=== PATIENT | female | born 1975 | race Caucasian/White ===

== ENCOUNTER 2021-09-29 15:14 | Outpatient (CLI) | payer OTHER, SELFPAY ==
[2021-09-29 19:07] LABS: D Dimer Quantitative* 0.74 ug/ml (0.00-0.50)
== END 2021-09-29 15:15 | disposition home or self-care (01) ==
LOC: LKVREF 15:17
PROVIDERS: PCP Emergency Medicine; Visit Provider Internal Medicine Hematology & Oncology
DX: I82.409 Acute embolism and thrombosis of unspecified deep veins of unspecified lower extremity (principal); I10 Essential (primary) hypertension
CPT/HCPCS: 85379

== ENCOUNTER 2022-03-11 15:41 | Outpatient (CLI) | payer OTHER, SELFPAY ==
[2022-03-11 22:27] LABS: Chloride* 102 mmol/L (96-114); Potassium* 3.8 mmol/L (3.6-5.1); Sodium* 139 mmol/L (135-149)
[2022-03-11 22:30] LABS: Blood Urea Nitrogen* 12 mg/dL (5-24); Calcium* 9.5 mg/dL (8.4-10.6); Carbon Dioxide* 29 mmol/L (20-32); Creatinine* 0.7 mg/dL (0.5-1.5); Estimated Glomerular Filt Rate 109 ml/min; Glucose* 74 mg/dL (60-115)
== END 2022-03-11 15:42 | disposition home or self-care (01) ==
LOC: LKVREF 15:41
PROVIDERS: PCP Emergency Medicine; Visit Provider Emergency Medicine
DX: I10 Essential (primary) hypertension (principal)
CPT/HCPCS: 80048

== ENCOUNTER 2023-05-03 18:28 | Outpatient (CLI) | payer OTHER, SELFPAY | END 2023-05-03 18:29 | disposition home or self-care (01) | PROVIDERS: PCP Emergency Medicine; Visit Provider Emergency Medicine | DX: I10 Essential (primary) hypertension (principal); Z13.220 Encounter for screening for lipoid disorders; Z86.32 Personal history of gestational diabetes | CPT/HCPCS: 80048; 80061 ==

== ENCOUNTER 2024-05-10 08:49 | Outpatient (CLI) | payer OTHER, SELFPAY ==
[2024-05-12 11:55] LABS: HPV Source Cervix; HPV, High Risk by TMA Not Detected
== END 2024-05-10 08:50 | disposition home or self-care (01) ==
PROVIDERS: PCP Emergency Medicine; Visit Provider Emergency Medicine
DX: I10 Essential (primary) hypertension (principal); R00.2 Palpitations; Z12.4 Encounter for screening for malignant neoplasm of cervix; Z11.51 Encounter for screening for human papillomavirus (HPV); Z11.3 Encounter for screening for infections with a predominantly sexual mode of transmission
CPT/HCPCS: 80048; 84443; 87624; 87625; 88141; 88142